=== PATIENT | female | born 1965 | race Caucasian/White ===

== ENCOUNTER 2020-01-29 07:58 | Emergency (ER) | payer MEDICAID ==
[~2020-01-29] VITALS: Ht 167.6 cm; Wt 95.3 kg
[2020-01-29 08:19] VITALS: Ht 167.6 cm; Wt 95.3 kg
[2020-01-29 09:05] VITALS: BP 136/71
== END 2020-01-29 09:05 | disposition home or self-care (01) ==
LOC: ED 07:58
DX: F41.9 Anxiety disorder, unspecified (principal); I10 Essential (primary) hypertension; G47.9 Sleep disorder, unspecified; Z76.0 Encounter for issue of repeat prescription

== ENCOUNTER 2020-03-09 07:24 | Emergency (ER) | payer OTHER ==
[~2020-03-09] VITALS: Ht 162.6 cm; Wt 105.7 kg
[2020-03-09 07:36] VITALS: BP 145/99; Ht 162.6 cm; Wt 105.7 kg
== END 2020-03-09 08:10 | disposition home or self-care (01) ==
LOC: ED 07:24
DX: F41.9 Anxiety disorder, unspecified (principal); I10 Essential (primary) hypertension

== ENCOUNTER 2020-03-16 02:36 | Emergency (ER) | payer OTHER ==
[~2020-03-16] VITALS: Ht 162.6 cm; Wt 104.3 kg
[2020-03-16 02:38] VITALS: Ht 162.6 cm; Wt 104.3 kg
[2020-03-16 04:51] VITALS: BP 136/79
== END 2020-03-16 04:51 | disposition left against medical advice (07) ==
LOC: ED 02:36
DX: F43.23 Adjustment disorder with mixed anxiety and depressed mood (principal); I10 Essential (primary) hypertension